=== PATIENT | male | born 1960 | race Hispanic/Latino ===

== ENCOUNTER 2022-01-06 05:47 | Inpatient (IN) | payer SELFPAY ==
[2022-01-06] MEDS ORDERED: Piperacillin/Tazobactam 3.375 GM VIAL ONE (06:15)
[2022-01-06] MEDS ORDERED: Ondansetron PF 4 MG/2 ML Vial ONE ×2 (06:35→09:26)
[2022-01-06] MEDS ORDERED: Morphine 4 MG/ML VIAL ONE (06:35)
[2022-01-06 06:45] LABS: ALT (SGPT) 15 U/L (8-55); AST (SGOT) 19 U/L (5-34); Albumin 4.1 g/dL (3.4-4.8); Alkaline Phosphatase 85 U/L (40-110); Anion Gap 18 mmol/L (10-20); BUN (Urea Nitrogen) 19 mg/dL (8.4-25.7); Bilirubin, Total 2.1 mg/dL (0.2-1.2); Calc. Creatinine Clearance 0 mL/min (70-130); Calcium 9.4 mg/dL (7.8-10.44); Carbon Dioxide 23 mmol/L (23-31); Chloride 97 mmol/L (98-107); Estimated GFR 60; Globulin 3.6 g/dL (2.4-3.5); Glucose 426 mg/dL (80-115); Lipase Less than 4 U/L (8-78); Potassium 4.1 mmol/L (3.5-5.1); Protein, Total 7.7 g/dL (5.8-8.1); Sodium 134 mmol/L (136-145)
[2022-01-06 06:48] LABS: Hemoglobin 15.9 g/dL (14.0-18.0); Mean Corpuscular Hemoglobin 32.8 pg (27.0-31.0); Mean Corpuscular Volume 93.9 fL (78.0-98.0); Mean Platelet Volume 7.2 fL (7.4-10.4); Platelet Count 228 thou/uL (130-400); Red Blood Cell (RBC) Count 4.85 mill/uL (4.70-6.10); White Blood Cell (WBC) Count 21.3 thou/uL (4.8-10.8)
[2022-01-06 06:50] LABS: Band 14 % (5-11); Lymphocytes 6 % (21-51); MDiff Complete? YES; Monocytes 4 % (0-10); Neutrophil 76 % (42-75)
[2022-01-06 06:57] LABS: Actual Bicarbonate (HCO3v) 23 mEq/L (22-28); Base Excess -1.7 mEq/L (-2.0 to +3.0); Calcium, Ionized (venous) 1.07 mmol/L (1.16-1.32); Chloride (VBG) 100 mmol/L (98-106); Hemoglobin (Hb) 14.9 g/dL (13.1-17.2); Potassium (VBG) 4.07 mmol/L (3.70-5.30); Sodium 132.5 mmol/L (133-146); pH (venous) 7.38 (7.32-7.43)
[2022-01-06] MEDS ORDERED: Morphine 10 MG/ML VIAL ONE (07:33)
[2022-01-06] MEDS ORDERED: Bupivacaine/Epinephrine 0.25% 30 ML VIAL ONE (08:39)
[2022-01-06] MEDS ORDERED: Iopamidol 30 ML ONE (08:39)
[2022-01-06] MEDS ORDERED: fentaNYL Citrate/PF 100 MCG/2 ML SYRINGE ONE (08:42)
[2022-01-06] MEDS ORDERED: Pantoprazole 40 MG VIAL ONE (08:43)
[2022-01-06] MEDS ORDERED: Famotidine/PF 20 mg/2ml Vial ONE (08:43)
[2022-01-06] MEDS ORDERED: Insulin Regular 300 UNITS/3 ML VIAL ONE (09:04)
[2022-01-06] MEDS ORDERED: Succinylcholine 200 MG/10 ml SYRINGE FS ONE (09:26)
[2022-01-06] MEDS ORDERED: Lidocaine 1% PF 5 ML VIAL ONE (09:26)
[2022-01-06] MEDS ORDERED: Glycopyrrolate 0.2 MG/ML 5 ML SYRINGE ONE (09:26)
[2022-01-06] MEDS ORDERED: Rocuronium Bromide 10 MG/ML (10ML VIAL) ONE (09:26)
[2022-01-06] MEDS ORDERED: Phenylephrine 10 MG/ML VIAL ONE (09:26)
[2022-01-06] MEDS ORDERED: Neostigmine Methylsulfate 3 MG/3 ML SYRINGE ONE (09:26)
[2022-01-06] MEDS ORDERED: PROPOFOL 200 MG/20 ML VIAL ONE (09:26)
[2022-01-06] MEDS ORDERED: Iopamidol-370 76% 500 ML 1 ML ONE (09:43)
[2022-01-06] MEDS ORDERED: Promethazine HCl 25 MG/ML VIAL IM PRN (10:47)
[2022-01-06] MEDS ORDERED: Calcium Carbonate 500 MG ChewTAB PO PRN (10:47)
[2022-01-06] MEDS ORDERED: Morphine 4 MG/ML VIAL SLOW IVP PRN (10:47)
[2022-01-06] MEDS ORDERED: Dextrose 5% in Water 1,000 ML IV PRN (10:47)
[2022-01-06] MEDS ORDERED: Ondansetron PF 4 MG/2 ML Vial IVP PRN (10:47)
[2022-01-06] MEDS ORDERED: HYDROcodone/Acetaminophen 10/325 mg Tablet PO PRN (10:47)
[2022-01-06] MEDS ORDERED: Mag-Al 1200 mg/1200 mg/30 ML UDCUP PO PRN (10:47)
[2022-01-06] MEDS ORDERED: Dextrose 50% Abboject 50 ML SYRINGE SLOW IVP PRN (10:47)
[2022-01-06] MEDS ORDERED: Fentanyl 100 MCG/2 ML VIAL ONE (11:23)
[2022-01-06 12:50] VITALS: BMI 30.1
[2022-01-06] MEDS: Piperacillin/Tazobactam 3.375 GM in Sodium Chloride 0.9% 100 ML IVPB SCH ×2 (14:28→21:07)
[2022-01-06] MEDS: Sodium Chloride 0.9% 1,000 ML IV SCH ×2 (14:29→21:08)
[2022-01-06] MEDS: HumaLOG 300 UNITS/3 ML VIAL SC PRN ×2 (17:21→22:16)
[2022-01-06] MEDS: Famotidine/PF 20 mg/2ml Vial SLOW IVP SCH (21:07)
[2022-01-06] MEDS: Famotidine 20 MG TAB PO SCH (21:07)
[2022-01-07] MEDS: Sodium Chloride 0.9% 1,000 ML IV SCH ×3 (05:38→19:39)
[2022-01-07] MEDS: Piperacillin/Tazobactam 3.375 GM in Sodium Chloride 0.9% 100 ML IVPB SCH ×3 (05:44→22:04)
[2022-01-07 05:59] LABS: Hemoglobin A1c 11.4 % (4.0-6.0)
[2022-01-07] MEDS: HumaLOG 300 UNITS/3 ML VIAL SC PRN ×4 (05:59→22:19)
[2022-01-07 06:02] LABS: #Eosinphils 0.2 thou/uL (0.0-0.7); #Lymphocytes 1.4 thou/uL (1.20-3.40); #Monocytes 0.6 thou/uL (0.11-0.59); #Neutrophils 8.5 thou/uL (1.40-6.50); %Basophils 0.1 % (0.0-1.0); %Lymphocytes 12.8 % (21.0-51.0); %Neutrophils 79.1 % (42.0-75.0); Hemoglobin 12.5 g/dL (14.0-18.0); Mean Corpuscular HGB CONC 33.7 g/dL (32.0-36.0); Mean Corpuscular Hemoglobin 32.1 pg (27.0-31.0); Mean Corpuscular Volume 95.5 fL (78.0-98.0); Platelet Count 197 thou/uL (130-400); RBC Distribution Width 12.2 % (11.5-14.5); Red Blood Cell (RBC) Count 3.89 mill/uL (4.70-6.10); White Blood Cell (WBC) Count 10.7 thou/uL (4.8-10.8)
[2022-01-07 06:23] LABS: ALT (SGPT) 29 U/L (8-55); AST (SGOT) 32 U/L (5-34); Alkaline Phosphatase 67 U/L (40-110); Anion Gap 12 mmol/L (10-20); BUN (Urea Nitrogen) 18 mg/dL (8.4-25.7); Bilirubin, Total 0.8 mg/dL (0.2-1.2); Calc. Creatinine Clearance 102 mL/min (70-130); Calcium 7.9 mg/dL (7.8-10.44); Carbon Dioxide 24 mmol/L (23-31); Chloride 104 mmol/L (98-107); Estimated GFR 89; Glucose 221 mg/dL (80-115); Lipase 9 U/L (8-78); Potassium 3.5 mmol/L (3.5-5.1); Sodium 136 mmol/L (136-145)
[2022-01-07] MEDS: Famotidine/PF 20 mg/2ml Vial SLOW IVP SCH ×3 (09:00→21:57)
[2022-01-07] MEDS: Famotidine 20 MG TAB PO SCH ×2 (09:08→22:04)
[2022-01-07] MEDS ORDERED: Insulin Glargine 30 UNITS/0.3 ML VIAL SC SCH (10:30)
[2022-01-07] MEDS: metFORMIN 500 MG TAB PO SCH (18:10)
[2022-01-07] MEDS: hydrALAZINE 20 MG/ML VIAL SLOW IVP PRN (23:13)
[2022-01-08] MEDS: Piperacillin/Tazobactam 3.375 GM in Sodium Chloride 0.9% 100 ML IVPB SCH ×2 (04:32→12:30)
[2022-01-08] MEDS: Sodium Chloride 0.9% 1,000 ML IV SCH ×2 (04:34→09:52)
[2022-01-08] MEDS: hydrALAZINE 20 MG/ML VIAL SLOW IVP PRN (05:13)
[2022-01-08 06:17] LABS: #Eosinphils 0.4 thou/uL (0.0-0.7); #Lymphocytes 1.3 thou/uL (1.20-3.40); #Monocytes 0.4 thou/uL (0.11-0.59); #Neutrophils 3.9 thou/uL (1.40-6.50); %Basophils 0.7 % (0.0-1.0); %Eosinophils 6.1 % (0.0-10.0); %Lymphocytes 22.2 % (21.0-51.0); %Monocytes 6.3 % (0.0-10.0); %Neutrophils 64.7 % (42.0-75.0); Hemoglobin 13.4 g/dL (14.0-18.0); Mean Corpuscular HGB CONC 34.2 g/dL (32.0-36.0); Mean Corpuscular Hemoglobin 32.7 pg (27.0-31.0); Mean Corpuscular Volume 95.6 fL (78.0-98.0); Mean Platelet Volume 6.9 fL (7.4-10.4); Platelet Count 242 thou/uL (130-400); RBC Distribution Width 11.9 % (11.5-14.5)
[2022-01-08 06:38] LABS: ALT (SGPT) 34 U/L (8-55); AST (SGOT) 37 U/L (5-34); Albumin 3.2 g/dL (3.4-4.8); Alkaline Phosphatase 90 U/L (40-110); Anion Gap 14 mmol/L (10-20); BUN (Urea Nitrogen) 10 mg/dL (8.4-25.7); Bilirubin, Total 0.8 mg/dL (0.2-1.2); Calc. Creatinine Clearance 126 mL/min (70-130); Calcium 8.5 mg/dL (7.8-10.44); Carbon Dioxide 22 mmol/L (23-31); Chloride 104 mmol/L (98-107); Estimated GFR 101; Globulin 3.1 g/dL (2.4-3.5); Glucose 194 mg/dL (80-115); Potassium 3.7 mmol/L (3.5-5.1); Protein, Total 6.3 g/dL (5.8-8.1); Sodium 136 mmol/L (136-145)
[2022-01-08] MEDS: HumaLOG 300 UNITS/3 ML VIAL SC PRN ×2 (07:01→14:42)
[2022-01-08] MEDS ORDERED: Insulin Glargine 30 UNITS/0.3 ML VIAL SC SCH (09:00)
[2022-01-08] MEDS ORDERED: Amlodipine 5 MG TAB PO SCH (09:00)
[2022-01-08] MEDS: metFORMIN 500 MG TAB PO SCH (09:46)
[2022-01-08] MEDS: Famotidine 20 MG TAB PO SCH (09:46)
[2022-01-08] MEDS: Famotidine/PF 20 mg/2ml Vial SLOW IVP SCH (09:47)
[2022-01-08 11:46] VITALS: TEMP 98.1
[2022-01-08 14:59] VITALS: BP 162/72
== END 2022-01-08 14:59 | disposition home or self-care (01) | DRG 854 ==
LOC: ERS 05:47 → SDC 08:48 → SJJU 12:51
PROVIDERS: ADMIT Surgery; ATTEND Surgery
PROC: 0FT44ZZ Resection of Gallbladder, Percutaneous Endoscopic Approach (ICD-10-PCS; principal; 2022-01-06)
PROC: 3E03329 Introduction of Other Anti-infective into Peripheral Vein, Percutaneous Approach (ICD-10-PCS; 2022-01-06)
DX: A41.9 Sepsis, unspecified organism (principal); K81.0 Acute cholecystitis; K82.A1 Gangrene of gallbladder in cholecystitis; Z20.822 Contact with and (suspected) exposure to COVID-19; F17.210 Nicotine dependence, cigarettes, uncomplicated; E11.65 Type 2 diabetes mellitus with hyperglycemia; E66.9 Obesity, unspecified; I10 Essential (primary) hypertension; Z68.30 Body mass index [BMI] 30.0-30.9, adult; Z71.6 Tobacco abuse counseling
CPT/HCPCS: 36415; 36416; 47532; 71045; 74177; 76705; 80053; 82010; 82805; 83036; 83605; 83690; 85025; 87040; 87811; 88304; 93005; 96361; 96365; 96374; 96375; C1713; C9113; J0360; J1815; J2270; J2370; J2405; J2543; J2704; J3010; J3490; J7050; Q9967; S0028